=== PATIENT | male | born 1960 | race Caucasian/White ===

== ENCOUNTER 2018-04-12 00:27 | Emergency (ER) | payer MEDICARE ==
[~2018-04-12] VITALS: Ht 165.1 cm; Wt 70.5 kg
--- NOTE | 2018-04-12 00:39 | NUR ---
Dr. Díaz at bedside to evaluate pt.
--- NOTE | 2018-04-12 00:48 | NUR ---
EDT at bedside for EKG.
--- NOTE | 2018-04-12 00:53 | NUR ---
XR at bedside.
--- NOTE | 2018-04-12 00:54 | NUR ---
Lab at bedside.
[2018-04-12 01:15] LABS: MEAN CORPUSCULAR HEMOGLOBIN 29.1 pg (27.5-34.5); MEAN CORPUSCULAR HGB CONC 32.9 g/dL (33.2-36.2); MEAN CORPUSCULAR VOLUME 88.5 fL (81-97); MEAN PLATELET VOLUME 8.5 fL (7.4-10.4); PLATELET COUNT 263 x10^3/uL (130-400); RED BLOOD COUNT 4.23 x10^6/uL (4.38-5.82); RED CELL DISTRIBUTION WIDTH 13.6 % (9.4-14.8)
[2018-04-12 01:24] LABS: ALBUMIN 3.4 g/dL (3.4-5.0); ANION GAP 7 mmol/L (5-15); CHLORIDE 106 mmol/L (98-107); CREATININE 0.78 mg/dL (0.7-1.3)
[2018-04-12 01:26] LABS: BASOPHILS # (AUTO) 0.03 x10^3/uL (0-0.1); BASOPHILS % (AUTO) 0 % (0-1); EOSINOPHILS # (AUTO) 0.26 x10^3/uL (0-0.4); EOSINOPHILS % (AUTO) 2 % (1-7); LYMPHOCYTES # (AUTO) 2.41 x10^3/uL (1-3.4); LYMPHOCYTES % (AUTO) 21 % (22-44); MD SCAN; MONOCYTES # (AUTO) 1.54 x10^3/uL (0.2-0.8); MONOCYTES % (AUTO) 13 % (2-9); NEUTROPHILS # (AUTO) 7.48 x10^3/uL (1.8-6.8); NEUTROPHILS % (AUTO) 64 % (42-75)
[2018-04-12 01:27] LABS: TROPONIN I < 0.015 ng/mL (0.000-0.045)
--- NOTE | 2018-04-12 01:38 | NUR ---
Dr. Díaz at bedside to discuss ED findings and d/c information.
--- NOTE | 2018-04-12 01:42 | NUR ---
Patient/Caregiver given discharge instructions and they have confirmed that they understand the instructions. Patient ambulatory with steady gait. Pt given [employer] voucher for safe discharge home.
[2018-04-12 01:43] VITALS: BP 121/61
== END 2018-04-12 01:45 | disposition home or self-care (01) ==
LOC: ED 01:01
DX: R07.89 Other chest pain (principal); I10 Essential (primary) hypertension; I25.2 Old myocardial infarction; F17.200 Nicotine dependence, unspecified, uncomplicated; E78.00 Pure hypercholesterolemia, unspecified; E78.5 Hyperlipidemia, unspecified
CPT/HCPCS: 36415; 71045; 80048; 82040; 84484; 85025; 93005; 99284

== ENCOUNTER 2018-04-12 17:20 | Emergency (ER) | payer MEDICARE ==
[~2018-04-12] VITALS: Ht 162.6 cm; Wt 60.0 kg
[2018-04-12 17:22] VITALS: BP 137/106
== END 2018-04-12 19:10 | disposition home or self-care (01) ==
LOC: ED 17:28
DX: R53.1 Weakness (principal); E78.5 Hyperlipidemia, unspecified; E78.00 Pure hypercholesterolemia, unspecified; I10 Essential (primary) hypertension; I25.2 Old myocardial infarction; F17.200 Nicotine dependence, unspecified, uncomplicated
CPT/HCPCS: 99283

== ENCOUNTER 2018-05-05 06:17 | Emergency (ER) | payer MEDICARE ==
[~2018-05-05] VITALS: Ht 165.1 cm; Wt 70.0 kg
--- NOTE | 2018-05-05 06:27 | NUR ---
ASSUMED CARE OF PATIENT. PATIENT BIB [facility] FOR LEFT SIDED CHEST PAIN X1 HOUR 09/16 PAIN. PT ALSO REPORTS A COUGH. CALL LIGHT IN PLACE. PLANER FEEDER ON. NSR NOTED. EKG DONE. CALL LIGHT IN PLACE. WILL CONTINUE TO MONITOR.
--- NOTE | 2018-05-05 06:34 | NUR ---
PT SEEN BY DR GONZALEZ
[2018-05-05] MEDS ORDERED: LEVE500T8 PO (06:35)
[2018-05-05] MEDS ORDERED: NITROGLYCERIN (06:36)
[2018-05-05] MEDS ORDERED: LEVO100T5 PO (06:37)
[2018-05-05] MEDS ORDERED: ATOR20TA37 PO (06:37)
[2018-05-05] MEDS ORDERED: GABA300C10 PO (06:38)
[2018-05-05] MEDS ORDERED: PHEN30TA PO (06:38)
--- NOTE | 2018-05-05 06:53 | NUR ---
BEDSIDE REPORT GIVEN TO ARIC AGUILAR
--- NOTE | 2018-05-05 06:53 | NUR ---
received report from Ellen. pt upright on gurney with eyes closed, responds approp to staff, NAD, comfort measures provided, call light within reach.
[2018-05-05 07:02] LABS: BASOPHILS % (AUTO) 1 % (0-1); EOSINOPHILS # (AUTO) 0.22 x10^3/uL (0-0.4); EOSINOPHILS % (AUTO) 2 % (1-7); LYMPHOCYTES # (AUTO) 1.98 x10^3/uL (1-3.4); LYMPHOCYTES % (AUTO) 20 % (22-44); MD NO; MEAN CORPUSCULAR HEMOGLOBIN 29.2 pg (27.5-34.5); MEAN CORPUSCULAR HGB CONC 33.2 g/dL (33.2-36.2); MEAN PLATELET VOLUME 8.2 fL (7.4-10.4); MONOCYTES # (AUTO) 0.93 x10^3/uL (0.2-0.8); MONOCYTES % (AUTO) 10 % (2-9); NEUTROPHILS # (AUTO) 6.48 x10^3/uL (1.8-6.8); NEUTROPHILS % (AUTO) 67 % (42-75); PLATELET COUNT 382 x10^3/uL (130-400); RED BLOOD COUNT 4.55 x10^6/uL (4.38-5.82); RED CELL DISTRIBUTION WIDTH 13.8 % (9.4-14.8)
[2018-05-05 07:06] LABS: ALBUMIN 3.1 g/dL (3.4-5.0); ANION GAP 4 mmol/L (5-15); CALCIUM 8.1 mg/dL (8.5-10.1); CHLORIDE 110 mmol/L (98-107)
[2018-05-05 07:12] LABS: CREATININE 0.75 mg/dL (0.7-1.3); TROPONIN I < 0.015 ng/mL (0.000-0.045)
--- NOTE | 2018-05-05 07:58 | NUR ---
pt remains upright on gurney with eyes closed, able to doze off easily, responds approp to staff, NAD, comfort measures provided, call light within reach.
--- NOTE | 2018-05-05 08:56 | NUR ---
pt upright on gurney with eyes closed, able to doze off easily, responds approp to staff, NAD, comfort measures provided, call light within reach.
[2018-05-05 09:50] LABS: TROPONIN I < 0.015 ng/mL (0.000-0.045)
[2018-05-05 10:02] VITALS: BP 133/70
--- NOTE | 2018-05-05 10:24 | NUR ---
Patient given discharge instructions and they have confirmed that they understand the instructions. Patient ambulatory with steady gait.
== END 2018-05-05 10:25 | disposition home or self-care (01) ==
LOC: ED 07:57
DX: R07.89 Other chest pain (principal); R05 Cough; E78.5 Hyperlipidemia, unspecified; E78.00 Pure hypercholesterolemia, unspecified; I25.2 Old myocardial infarction; F17.200 Nicotine dependence, unspecified, uncomplicated
CPT/HCPCS: 36415; 71046; 80048; 82040; 84484; 85025; 93005; 99284

== ENCOUNTER 2018-05-10 01:38 | Observation (INO) | payer MEDICARE ==
[~2018-05-10] VITALS: Ht 165.1 cm; Wt 58.3 kg
[~2018-05-10 01:38] MED LIST: ATOR20TA37 PO; GABA300C10 PO; LEVE500T8 PO; LEVO100T5 PO; NITROGLYCERIN; PHEN30TA PO
[2018-05-10] MEDS ORDERED: NITROGLYCERIN SINGLE TAB 0.4 MG SL PRN (02:00)
[2018-05-10] MEDS ORDERED: ASPIRIN 81 MG TABLET CHEW ONE (02:00)
[2018-05-10] MEDS ORDERED: NITROGLYCERIN SINGLE TAB 0.4 MG SL ONE (02:00)
[2018-05-10] MEDS ORDERED: ACETAMINOPHEN 325 MG TABLET ONE (02:00)
[2018-05-10] MEDS ORDERED: ACETAMINOPHEN 325 MG TABLET PO ONE (02:00)
[2018-05-10] MEDS ORDERED: ASPIRIN 81 MG TABLET CHEW PO ONE (02:00)
--- NOTE | 2018-05-10 02:05 | NUR ---
PT BIB [facility] FOR SUDDEN ONSET LEFT CHEST PAIN. PT HAS HAD A PRODUCTIVE COUGH FOR SEVERAL DAYS. PAIN IS 7/10 AND SHARP. PAIN IS REPRODUCIBLE. VSS. PT MEDICATED. CALL LIGHT IN REACH
[2018-05-10 02:08] LABS: BASOPHILS # (AUTO) 0.11 x10^3/uL (0-0.1); BASOPHILS % (AUTO) 1 % (0-1); EOSINOPHILS # (AUTO) 0.23 x10^3/uL (0-0.4); EOSINOPHILS % (AUTO) 2 % (1-7); LYMPHOCYTES # (AUTO) 2.73 x10^3/uL (1-3.4); LYMPHOCYTES % (AUTO) 24 % (22-44); MD NO; MEAN CORPUSCULAR HEMOGLOBIN 29.4 pg (27.5-34.5); MEAN CORPUSCULAR HGB CONC 33.5 g/dL (33.2-36.2); MEAN CORPUSCULAR VOLUME 87.7 fL (81-97); MEAN PLATELET VOLUME 8.5 fL (7.4-10.4); MONOCYTES # (AUTO) 1.44 x10^3/uL (0.2-0.8); MONOCYTES % (AUTO) 12 % (2-9); NEUTROPHILS # (AUTO) 7.12 x10^3/uL (1.8-6.8); NEUTROPHILS % (AUTO) 61 % (42-75); PLATELET COUNT 361 x10^3/uL (130-400); RED BLOOD COUNT 4.48 x10^6/uL (4.38-5.82)
[2018-05-10 02:17] LABS: ALBUMIN 3.5 g/dL (3.4-5.0); ANION GAP 4 mmol/L (5-15); CALCIUM 8.2 mg/dL (8.5-10.1); CHLORIDE 107 mmol/L (98-107); CREATININE 0.86 mg/dL (0.7-1.3)
[2018-05-10 02:21] LABS: TROPONIN I < 0.015 ng/mL (0.000-0.045)
[2018-05-10] MEDS ORDERED: SODIUM CHLORIDE 0.9% 1,000 ML IV SCH (03:18)
[2018-05-10] MEDS ORDERED: ACETAMINOPHEN 325 MG TABLET PO PRN ×2 (03:30→09:30)
[2018-05-10] MEDS ORDERED: MORPHINE SULFATE 4 MG/ML, 1ML IVPush PRN (03:30)
[2018-05-10] MEDS ORDERED: ONDANSETRON 2MG/ML, 2ML IVPush PRN (03:30)
[2018-05-10] MEDS ORDERED: ONDANSETRON 2MG/ML, 2ML IVPush ONE (03:30)
[2018-05-10] MEDS ORDERED: ENOXAPARIN 40 MG/0.4 ML SQ SCH (03:30)
[2018-05-10] MEDS ORDERED: GUAIFENESIN/DM 200-20MG, 10ML UDC PO PRN (03:30)
[2018-05-10] MEDS ORDERED: POLYETHYLENE GLYCOL 17 GM PACKET PO PRN (03:30)
[2018-05-10] MEDS ORDERED: ONDANSETRON 2MG/ML, 2ML ONE (03:36)
[2018-05-10] MEDS ORDERED: MORPHINE SULFATE 4 MG/ML, 1ML ONE (03:37)
[2018-05-10] MEDS ORDERED: KETOROLAC 30 MG/1 ML IVPush ONE (04:00)
[2018-05-10] MEDS ORDERED: HYDROcodone/CHLORPHENIR ORAL SUSP PO PRN (04:00)
[2018-05-10 04:02] VITALS: BP 145/81
[2018-05-10] MEDS ORDERED: NITR0.4T SL (04:18)
[2018-05-10] MEDS: BENZONATATE 100 MG CAPSULE PO SCH ×3 (05:03→16:47)
[2018-05-10] MEDS ORDERED: LEVOTHYROXINE 100 MCG TABLET PO SCH (06:00)
[2018-05-10 06:36] LABS: CHOLESTEROL, TOTAL 111 mg/dL (140-239); TRIGLYCERIDES 78 mg/dL (50-200); VLDL CHOLESTEROL 16 mg/dL (0-25)
[2018-05-10 06:38] LABS: CHOL/HDL RATIO 2.3; HDL CHOL % 44 % (26-37); HDL CHOLESTEROL (DIRECT) 49 mg/dL (40-60); LDL CHOLESTEROL,CALCULATED 46 mg/dL (54-169); LDL/HDL RATIO 0.9 (0.5-3.0); TROPONIN I < 0.015 ng/mL (0.000-0.045)
[2018-05-10 06:53] VITALS: BP 125/73
[2018-05-10] MEDS ORDERED: REGADENOSON 0.4 MG/5 ML SYRINGE ONE (09:57)
[2018-05-10] MEDS ORDERED: ASPI-496 PO (10:37)
[2018-05-10 14:12] VITALS: BP 148/84
[2018-05-10] MEDS ORDERED: PHENOBARBITAL 30 MG TABLET PO SCH (21:00)
[2018-05-11] MEDS ORDERED: SODIUM CHLORIDE 0.9% 1,000 ML IV SCH (03:18)
[2018-05-11] MEDS ORDERED: ASPIRIN 325 MG TABLET EC PO SCH (06:00)
== END 2018-05-10 17:35 | disposition home or self-care (01) ==
LOC: ED 02:03 → EDIP 03:09 → INTOOBSV 03:09 → 5SO 03:55
PROVIDERS: ADMIT Hospitalist; ATTEND Hospitalist
DX: R07.89 Other chest pain (principal); E11.9 Type 2 diabetes mellitus without complications; E78.5 Hyperlipidemia, unspecified; F17.210 Nicotine dependence, cigarettes, uncomplicated; G40.909 Epilepsy, unspecified, not intractable, without status epilepticus; I10 Essential (primary) hypertension; I25.10 Atherosclerotic heart disease of native coronary artery without angina pectoris; I25.2 Old myocardial infarction; J41.0 Simple chronic bronchitis; Z59.0 Homelessness; Z23 Encounter for immunization
CPT/HCPCS: 36415; 71045; 78452; 80048; 80061; 82040; 83880; 84484; 85025; 90656; 93005; 93017; 96374; 96375; 99284; A9502; C9898; G0008; G0378; J1885; J2405; J2785; J7030

== ENCOUNTER 2018-05-15 19:21 | Emergency (ER) | payer MEDICARE ==
[~2018-05-15] VITALS: Ht 165.1 cm; Wt 72.0 kg
[~2018-05-15 19:21] MED LIST changes: +ASPI-496 PO; +NITR0.4T SL
[2018-05-15 20:32] LABS: BASOPHILS # (AUTO) 0.05 x10^3/uL (0-0.1); BASOPHILS % (AUTO) 0 % (0-1); EOSINOPHILS % (AUTO) 2 % (1-7); LYMPHOCYTES # (AUTO) 1.34 x10^3/uL (1-3.4); LYMPHOCYTES % (AUTO) 10 % (22-44); MD NO; MEAN CORPUSCULAR HEMOGLOBIN 29.5 pg (27.5-34.5); MEAN CORPUSCULAR HGB CONC 33.3 g/dL (33.2-36.2); MEAN CORPUSCULAR VOLUME 88.6 fL (81-97); MEAN PLATELET VOLUME 8.8 fL (7.4-10.4); MONOCYTES # (AUTO) 1.09 x10^3/uL (0.2-0.8); MONOCYTES % (AUTO) 8 % (2-9); NEUTROPHILS # (AUTO) 10.64 x10^3/uL (1.8-6.8); NEUTROPHILS % (AUTO) 80 % (42-75); PLATELET COUNT 269 x10^3/uL (130-400); RED BLOOD COUNT 4.51 x10^6/uL (4.38-5.82); RED CELL DISTRIBUTION WIDTH 14.1 % (9.4-14.8)
[2018-05-15 20:43] LABS: ALBUMIN 3.4 g/dL (3.4-5.0); ANION GAP 4 mmol/L (5-15); CALCIUM 8.1 mg/dL (8.5-10.1); CHLORIDE 109 mmol/L (98-107)
[2018-05-15 20:48] LABS: ALANINE AMINOTRANSFERASE 27 U/L (12-78); ALKALINE PHOSPHATASE 91 U/L (45-117); BILIRUBIN,TOTAL 0.7 mg/dL (0.2-1.0); CREATININE 0.97 mg/dL (0.7-1.3); TOTAL PROTEIN 6.3 g/dL (6.4-8.2); TROPONIN I < 0.015 ng/mL (0.000-0.045)
[2018-05-15 21:40] VITALS: BP 139/89
== END 2018-05-15 21:43 | disposition home or self-care (01) ==
LOC: ED 20:22
DX: R07.89 Other chest pain (principal); I25.10 Atherosclerotic heart disease of native coronary artery without angina pectoris; F17.200 Nicotine dependence, unspecified, uncomplicated
CPT/HCPCS: 36415; 71045; 80053; 84484; 85025; 93005; 99284